=== PATIENT | male | born 1990 | race Two or more races ===

== ENCOUNTER 2019-03-23 20:54 | Inpatient (IN) | payer OTHER ==
[~2019-03-23] VITALS: Ht 175.3 cm; Wt 89.8 kg
[2019-03-23] MEDS ORDERED: HUMIRA40 MG/0.2 (21:11)
--- NOTE | 2019-03-23 21:11 | NUR ---
SE RECIBE MASCULINO ALERTA Y ORIENTADO POR GALINDO ESFERAS, AMBULANDO. REFIERE DOLOR ABDOMINAL EN CUADRANTE ABDOMINAL INFERIOR DERECHO DESDE BHAVANA.
--- NOTE | 2019-03-23 22:48 | NUR ---
PTE EVALUADO POR EL DR SIDDIQUIA QUIEN ORDENA EL [place]. MS M ALFARO ORIENTA SOBRE EL MISMO, LO CUAL REFIERE ENTENDER, REALIZA PRUEBAS DE LABORATORIO Y ADMINISTRA MEDICAMENTOS ABENA ORDEN MEDICA Y SIGUIENDO MEDIDAS ASEPTICAS.
--- NOTE | 2019-03-24 08:05 | NUR ---
SE RECIBE PACIENTE DE TURNO ANTERIOR.EM MACARIO,ACOMPANADO POR FAMILIAR ESTA ALERTA Y ORIENTADO,ACOMPANADO POR FAMILIAR.AREA DE VENOPUNCION ESTA LIMPIA Y SECA,BECKY DE EDEMA. ES ORIENTADO SOBRE PROCEDIMIENTOS A LLEVARSE A CABO,LO CUAL REFIERE COMDPRENDER.MANTENIDO CON CABEZERA A 45 GRADOS,BARANDAS ELEVADAS Y EN OBSERVACION COSNTANTE POR CAMBIOS EN CONDICION.
== END 2019-03-27 19:33 | disposition home or self-care (01) | DRG 387 ==
LOC: ER 20:54 → MEDJ 03-24 13:11 → SEC-K 03-24 13:11 → MEDJ 03-24 14:23
PROVIDERS: ADMIT Internal Medicine
PROC: BW21ZZZ Computerized Tomography (CT Scan) of Abdomen and Pelvis (ICD-10-PCS; principal; 2019-03-23)
DX: K50.112 Crohn's disease of large intestine with intestinal obstruction (principal); E86.0 Dehydration

== ENCOUNTER 2019-06-20 04:58 | Emergency (ER) | payer OTHER ==
[~2019-06-20] VITALS: Ht 175.3 cm; Wt 79.4 kg
[~2019-06-20 04:58] MED LIST: HUMIRA40 MG/0.2
[2019-06-20] MEDS ORDERED: RENFLEXIS100 MG (05:07)
[2019-06-20] MEDS ORDERED: DOLOGESIC 500-1 EACH PO (07:21)
== END 2019-06-20 08:02 ==
LOC: ER 04:58
DX: S20.212A Contusion of left front wall of thorax, initial encounter (principal); S20.211A Contusion of right front wall of thorax, initial encounter; S13.4XXA Sprain of ligaments of cervical spine, initial encounter; V43.42XA Person boarding or alighting a car injured in collision with other type car, initial encounter; Y92.413 State road as the place of occurrence of the external cause; Y93.89 Activity, other specified; Y99.8 Other external cause status

== ENCOUNTER 2022-01-02 10:23 | Emergency (ER) | payer OTHER ==
[~2022-01-02] VITALS: Ht 175.3 cm; Wt 90.7 kg
[~2022-01-02 10:23] MED LIST changes: +DOLOGESIC 500-1 EACH PO; +RENFLEXIS100 MG
[2022-01-02] MEDS ORDERED: IMURAN50 MG PO (10:32)
[2022-01-02] MEDS ORDERED: RENFLEXIS100 MG IV (10:32)
== END 2022-01-02 14:28 ==
LOC: ER 10:23
DX: J06.9 Acute upper respiratory infection, unspecified (principal); R51.9 Headache, unspecified; Z20.822 Contact with and (suspected) exposure to COVID-19